=== PATIENT | female | born 1985 | race Caucasian/White ===

== ENCOUNTER 2016-11-29 21:18 | Emergency (ER) | payer OTHER ==
[~2016-11-29] VITALS: Ht 167.6 cm; Wt 99.8 kg
[~2016-11-29 21:18] MED LIST: CYCL10TA2 PO
[2016-11-29 22:10] VITALS: BP 146/90
--- NOTE | 2016-11-29 22:20 | PHYS DOC ---
Past Medical History Past Medical History: Depression Past Surgical History: Smoking: Cigarettes Alcohol Use: None Drug Use: None Adult General Chief Complaint Chief Complaint: DENTAL PROBLEM [facility] HPI Patient is a 31 year old female who presents with right lower dental pain since dental procedure yesterday. Her dentist attempted extraction of her wisdom tooth, but this was not completed. She was referred to an oral surgeon. She was given hydrocodone, of which she has run out. Her pain is constant. She denies difficulty opening mouth or swallowing or breathing. She denies facial swelling. She denies fever or chills, nausea or vomiting. Review of Systems Review of Systems Constitutional: Denies fever or chills [] Eyes: Denies change in visual acuity, redness, or eye pain [] HENT: Denies nasal congestion or sore throat [] Respiratory: Denies cough or shortness of breath [] Cardiovascular: No additional information not addressed in HPI [] GI: Denies abdominal pain, nausea, vomiting, bloody stools or diarrhea [] : Denies dysuria or hematuria [] Musculoskeletal: Denies back pain or joint pain [] Integument: Denies rash or skin lesions [] Neurologic: Denies headache, focal weakness or sensory changes [] Endocrine: Denies polyuria or polydipsia [] Allergies Allergies Allergies Coded Allergies Type Severity Reaction Last Updated Verified No Known Drug Allergies 02/26/16 No Physical Exam Physical Exam Constitutional: Well developed, well nourished, no acute distress, non-toxic appearance. [] HENT: Normocephalic, atraumatic, bilateral external ears normal, oropharynx moist, no oral exudates, nose normal. Has tenderness to lateral gumline of right lower posterior molar with some white discoloration, no discharge or swelling; No stridor, change of voice, tongue swelling, trismus, or drooling; Uvula is midline and floor is nontender[] Eyes: PERRLA, EOMI. [] Neck: Normal range of motion, supple. [] Cardiovascular:Heart rate regular rhythm [] Lungs & Thorax: Bilateral breath sounds clear to auscultation [] Abdomen: Bowel sounds normal, soft, no tenderness. [] Skin: Warm, dry, no erythema, no rash. [] Back: Normal ROM. [] Extremities: No tenderness, ROM intact, no edema. [] Neurologic: Alert and oriented X 3, normal motor function, normal sensory function, no focal deficits noted. [] Psychologic: Affect normal, judgement normal, mood normal. [] Course & Med Decision Making Course & Med Decision Making Offered dental block, but she declined. Encouraged supportive care and to follow -up with dentist or oral surgery. Return precautions given. She understands and agrees with plan. Dragon Disclaimer Dragon Disclaimer This electronic medical record was generated, in whole or in part, using a voice recognition dictation system. Departure Departure Impression: Primary Impression: Pain, dental Disposition: 01 HOME, SELF-CARE Condition: STABLE Referrals: NO PCP (PCP) PABLO NI Jr DDS Patient Instructions: Dental Pain, [id number] Additional Instructions: Take Tylenol or ibuprofen as needed for pain. Follow-up with your dentist or an oral surgeon. Return for any concerns. Lucien GRAHAM MD Nov 29, 2016 22:20
[2016-11-29] MEDS ORDERED: IBUPROFEN 400 MG TABLET. PO ONE (22:30)
== END 2016-11-29 22:43 | disposition home or self-care (01) ==
LOC: ER 21:18
DX: K08.89 Other specified disorders of teeth and supporting structures (principal); F32.9 Major depressive disorder, single episode, unspecified; F17.210 Nicotine dependence, cigarettes, uncomplicated
CPT/HCPCS: 99282